=== PATIENT | female | born 1965 | race Caucasian/White ===

== ENCOUNTER 2016-06-05 08:25 | Emergency (ER) | payer BC, OTHER ==
[~2016-06-05] VITALS: Ht 149.9 cm; Wt 74.5 kg
[~2016-06-05 08:25] MED LIST: BACL10TA PO; CEPH500C PO
[2016-06-05 08:29] VITALS: TEMP 36.7; Ht 149.9 cm; Wt 74.5 kg
[2016-06-05 08:40] VITALS: O2SAT 99
[2016-06-05] MEDS ORDERED: IBUPROFEN 600 MG TAB PO STA (08:51)
--- NOTE | 2016-06-05 08:59 | EMERGENCY ROOM VISIT NOTE ---
History Report prepared by Kati: Sonja Finch Under the Supervision of: Dr. Leighton Ellis M.D. First contact with patient: 08:44 Chief Complaint: CHEST PAIN Stated Complaint: CHEST PAINS Nursing Triage Summary: Patient reports intermittent chest "fluttering" for the past two weeks also c/o right shoulder pain. Patient states she does feel short of breath when she feels this fluttering. Patient denies any cardiac history. History of Present Illness The patient is a 51 year old female who presents to the Emergency Room with complaints of intermittent stabbing right sided chest pain beginning 1 month ago. The patient states that her symptoms have worsened over the last weekend. She complains of shortness of breath, nausea, right shoulder pain, and diaphoresis. She denies any fever, abdominal pain, back pain, new ankle swelling , history of smoking, hypertension, and history of diabetes. The patient rates her pain as a 5/10 in severity. She notes that nothing makes her pain better and lifting her arm up worsens her chest pain. The patient reports that she fell on the ice and hurt her shoulder 3 months ago and when she moves her arm it causes her chest pain to start. 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 Source of History: patient Onset: 1 month ago Position: chest Symptom Intensity: 5/10 Quality: stabbing Timing: intermittent Modifying Factors (Worsening): other (lifting right arm) Associated Symptoms: + SOB, + diaphoresis, + nausea, No abdominal pain, No back pain, No fevers Note: She complains of shortness of breath, nausea, right shoulder pain, and diaphoresis. She denies any new ankle swelling, history of smoking, hypertension , and history of diabetes. Review of Systems All systems have been listed, reviewed, and are negative other than those previously mentioned. Please see Additional Medical History Sheet. Past Medical & Surgical Medical Problems: (1) Chest pain (2) Left foot pain Family History No pertinent family history stated. Social History Smoking Status: Never Smoker Marital Status: Housing Status: lives with family Occupation Status: employed Current/Historical Medications Scheduled PRN Ibuprofen Tab (Motrin), 600 MG PO Q6H PRN for Pain Allergies Coded Allergies: No Known Allergies (Unverified , 02/12/15) Physical Exam Vital Signs Date Time Temp Pulse Resp B/P Pulse Ox O2 Delivery O2 Flow Rate FiO2 06/05/16 11:41 94 20 142/89 98 06/05/16 10:55 92 18 153/102 97 Room Air 06/05/16 10:04 83 16 142/99 98 Room Air 06/05/16 09:20 88 16 159/118 98 Room Air 06/05/16 08:40 108 06/05/16 08:40 99 Room Air 06/05/16 08:37 99 Room Air 06/05/16 08:29 36.7 99 16 203/122 97 Physical Exam GENERAL: Patient awake, alert, oriented x 3. Patient follows commands. Patient does not appear toxic. Patient is mildly dehydrated. SKIN: No erythema, pallor, cyanosis or rash HEENT: Normal head, pupils equal, reactive to light and accommodation. Ears normal. Oral cavity and posterior pharynx appear normal. Mucous membranes dry. Neck: Without adenopathy, no neck vein distention. LUNGS: Clear to auscultation. No wheezes, no rales, no rhonchi. HEART: No murmurs. No gallops. No rubs CHEST WALL: Slight tenderness to palpation over the right anterior chest. ABDOMEN: No masses, no rebound, no hepatomegaly or splenomegaly. EXTREMITIES: Patient has limited range of motion of right shoulder, especially with abduction. No pedal or pretibial edema. No calf or thigh tenderness. NEUROLOGIC: Cranial nerves II-XII within normal limits. No gross motor sensory function deficits. Medical Decision & Procedures ER Provider Diagnostic Interpretation: X-ray results as stated below per my interpretation and radiologist interpretation. Other radiology results as stated below per my review and radiologist interpretation: RIGHT SHOULDER MIN 2 VIEWS ROUTINE DISCUSSION: The bones and joint spaces appear intact. There is no evidence of fracture, dislocation or bony disease. There is no evidence for soft tissue swelling. IMPRESSION: Negative study. Electronically signed by: Scot Hair M.D. 06/05/2016 9:28 AM Dictated Date/Time: 06/05/2016 9:27 AM CHEST 2 VIEWS ROUTINE FINDINGS: The bones soft tissues and hemidiaphragms are normal. The cardiomediastinal silhouette is normal. The lungs are clear. The pulmonary vasculature is normal. IMPRESSION: Negative chest. Electronically signed by: Scot Hair M.D. 06/05/2016 9:29 AM Dictated Date/Time: 06/05/2016 9:29 AM Laboratory Results 06/05/16 08:40 06/05/16 08:40 Test 06/05/16 08:40 Red Blood Count 3.96 M/uL (4.2-5.4) Mean Corpuscular Volume 100.8 fL (80-100) Mean Corpuscular Hemoglobin 35.1 pg (25-34) Mean Corpuscular Hemoglobin Concent 34.8 g/dl (32-36) RDW Standard Deviation 47.5 fL (36.4-46.3) RDW Coefficient of Variation 12.9 % (11.5-14.5) Mean Platelet Volume 10.0 fL (7.4-10.4) Anion Gap 14.0 mmol/L (3-11) Est Creatinine Clear Calc Drug Dose 83.4 ml/min Estimated GFR () 115.1 Estimated GFR (Non- 99.3 BUN/Creatinine Ratio 21.5 (10-20) Calcium Level 8.6 mg/dl (8.5-10.1) Total Bilirubin 0.4 mg/dl (0.2-1) Aspartate Amino Transf (AST/SGOT) 29 U/L (15-37) Alanine Aminotransferase (ALT/SGPT) 29 U/L (12-78) Alkaline Phosphatase 98 U/L (45-117) Troponin I < 0.015 ng/ml (0-0.045) Total Protein 8.5 gm/dl (6.4-8.2) Albumin 4.1 gm/dl (3.4-5.0) Globulin 4.4 gm/dl (2.5-4.0) Albumin/Globulin Ratio 0.9 (0.9-2) Laboratory results as stated above per my review. Medications Administered Medications (Trade) Dose Ordered Sig/Ronnie Route Start Time Stop Time Status Last Admin Dose Admin Ibuprofen (Motrin Tab) 600 mg NOW STAT PO 06/05/16 08:51 06/05/16 08:54 DC 06/05/16 09:00 600 MG ECG Indication: chest pain Rate (beats per minute): 91 Rhythm: normal sinus Findings: PAC (occasional), no acute ischemic change ED Course 0844: Past medical records reviewed. The patient was evaluated in room B10. A complete history and physical examination was performed. 0851: Motrin Tab 600mg PO. 1120: I reevaluated the patient and she is feeling better. 1132: Upon reevaluation, the patient appeared to have improvement of her symptoms. I discussed today's findings with the patient. She verbalized agreement of the treatment plan. The patient was discharged home. Medical Decision I considered multiple diagnoses including rotator cuff injury, bursitis, tendonitis, myocardial infarction, chest wall pain, pericarditis, myocarditis, aortic emergencies, pulmonary embolism, congestive heart failure, GI causes, and other significant cardiopulmonary disorders. The patient is here with chest pain. The pain is reproducible on palpation over the right pectoral area. The patient also has considerable pain with movement of her right arm especially abduction. X-rays of both the chest and right shoulder were negative. Multiple other labs and EKG were also evaluated. Please see above. The patient has no evidence of an acute cardiac or pulmonary event. I feel the patient is safe to return home. The patient did receive ibuprofen here which helped. She will continue that medication at home. The patient is to avoid lifting for the next week. She was advised to follow-up with a family physician regarding her blood pressure and orthopedics for her rotator cuff pain. Impression Primary Impression: Chest wall pain Additional Impression: Injury of right rotator cuff Scribe Attestation The scribe's documentation has been prepared under my direction and personally reviewed by me in its entirety. I confirm that the note above accurately reflects all work, treatment, procedures, and medical decision making performed by me. Departure Information Dispostion Home / Self-Care Prescriptions Ibuprofen Tab (MOTRIN) 600 Mg Tab 600 MG PO Q6H Y for Pain, #40 TAB Prov: Leighton Ellis M.D. 06/05/16 Referrals Scot Ramos M.D. (PCP) Forms HOME CARE DOCUMENTATION FORM, IMPORTANT VISIT INFORMATION Patient Instructions My [facility]Noise Additional Instructions 600 mg ibuprofen every 6 hours until pain has resolved. Apply heat intermittently to your chest and shoulder. Follow-up with your family physician within the next 10 days. Follow-up with orthopedics within the next 10 days. No lifting with your right arm for the next 7 days. Problem Qualifiers
[2016-06-05 09:01] LABS: HEMATOCRIT 39.9 % (37-47); MEAN CELL VOLUME 100.8 fL (80-100); MEAN CORPUSCULAR HEMOGLOBIN 35.1 pg (25-34); MEAN CORPUSCULAR HGB CONC 34.8 g/dl (32-36); PLATELET COUNT 164 K/uL (130-400); RED BLOOD COUNT 3.96 M/uL (4.2-5.4); WHITE BLOOD COUNT 6.91 K/uL (4.8-10.8)
[2016-06-05 09:17] LABS: ALT/SGPT 29 U/L (12-78); BLOOD UREA NITROGEN 15 mg/dl (7-18); BUN/CREATININE RATIO 21.5 (10-20); CALCIUM 8.6 mg/dl (8.5-10.1); CARBON DIOXIDE 21 mmol/L (21-32); CHLORIDE 103 mmol/L (98-107); CREATININE 0.71 mg/dl (0.60-1.20); GLUCOSE 113 mg/dl (70-99); POTASSIUM 4.1 mmol/L (3.5-5.1); SODIUM 138 mmol/L (136-145)
[2016-06-05 09:21] LABS: ALB/GLOB RATIO 0.9 (0.9-2); ALKALINE PHOSPHATASE 98 U/L (45-117); AST/SGOT 29 U/L (15-37)
--- NOTE | 2016-06-05 09:29 | DIAGNOSTIC IMAGING REPORT ---
RIGHT SHOULDER MIN 2 VIEWS ROUTINE CLINICAL HISTORY: pain with abduction Right pain COMPARISON: None. DISCUSSION: The bones and joint spaces appear intact. There is no evidence of fracture, dislocation or bony disease. There is no evidence for soft tissue swelling. IMPRESSION: Negative study. Electronically signed by: Scot Hair M.D. 06/05/2016 9:28 AM Dictated Date/Time: 06/05/2016 9:27 AM
--- NOTE | 2016-06-05 09:31 | DIAGNOSTIC IMAGING REPORT ---
CHEST 2 VIEWS ROUTINE CLINICAL HISTORY: chest pain dyspnea COMPARISON STUDY: 07/12/2005 FINDINGS: The bones soft tissues and hemidiaphragms are normal. The cardiomediastinal silhouette is normal. The lungs are clear. The pulmonary vasculature is normal. IMPRESSION: Negative chest. Electronically signed by: Scot Hair M.D. 06/05/2016 9:29 AM Dictated Date/Time: 06/05/2016 9:29 AM
[2016-06-05] MEDS ORDERED: IBUP-1427 PO (11:26)
[2016-06-05 11:41] VITALS: BP 142/89; PULSE 94; O2SAT 98
== END 2016-06-05 11:43 | disposition home or self-care (01) ==
LOC: C.EDB 08:29
DX: R07.89 Other chest pain (principal); S46.001A Unspecified injury of muscle(s) and tendon(s) of the rotator cuff of right shoulder, initial encounter; X58.XXXA Exposure to other specified factors, initial encounter

== ENCOUNTER → 2016-08-05 | Outpatient (CLI) | payer OTHER ==
[~2016-08-05] MED LIST changes: -BACL10TA PO; -CEPH500C PO; +IBUP-1427 PO
== END | disposition home or self-care (01) ==
LOC: C.LAB 23:00
DX: Z02.83 Encounter for blood-alcohol and blood-drug test (principal)